=== PATIENT | male | born 1990 | race American Indian/Alaskan Native ===

== ENCOUNTER 2017-07-04 13:29 | Emergency (ER) | payer OTHER ==
[2017-07-04 13:59] VITALS: RESP 18
--- NOTE | 2017-07-04 14:27 | C.PDOC ---
History Of Present Illness DYSURIA, PENILE DC X 1 DAY. +CONCERN FOR STD EXPOSURE 5 DAYS AGO. NO LESIONS, NO OTHER ASSOC SX EXAM NEG Time Seen by Provider: 07/04/17 14:00 Chief Complaint (Nursing): Male Genitourinary History Per: Patient History/Exam Limitations: no limitations Onset/Duration Of Symptoms: Days (1) Current Symptoms Are (Timing): Still Present Past Medical History Reviewed: Historical Data, Nursing Documentation, Vital Signs Vital Signs: Last Vital Signs Temp 98.4 F 07/04/17 13:56 Pulse 85 07/04/17 13:56 Resp 18 07/04/17 13:56 BP 119/80 07/04/17 13:56 Pulse Ox 100 07/04/17 14:48 Family History: States: No Known Family Hx - Social History Hx Alcohol Use: Yes Hx Substance Use: No - Immunization History Hx Tetanus Toxoid Vaccination: No Hx Influenza Vaccination: No Hx Pneumococcal Vaccination: No Review Of Systems Except As Marked, All Systems Reviewed And Found Negative. Constitutional: Negative for: Fever Gastrointestinal: Negative for: Nausea, Vomiting, Abdominal Pain Genitourinary: Positive for: Dysuria, Penile Discharge Physical Exam - Physical Exam Appears: Well, Non-toxic, No Acute Distress Skin: Warm, Dry Head: Atraumatic, Normacephalic Eye(s): bilateral: Normal Inspection, PERRL, EOMI Oral Mucosa: Moist Neck: Normal, Normal ROM, Supple Respiratory: Normal Breath Sounds Gastrointestinal/Abdominal: Normal Exam, Soft, No Tenderness, No Guarding, No Rebound Back: Normal Inspection, No CVA Tenderness Extremity: Normal ROM, No Swelling Neurological/Psych: Oriented x3, Normal Speech, Normal Motor ED Course And Treatment O2 Sat by Pulse Oximetry: 100 (RA) Pulse Ox Interpretation: Normal Medical Decision Making Medical Decision Making: PLAN: * Chlamydia/GC * Urinalysis * Cipro PO * Pyridium PO * Zithromax PO * Rocephin IM Disposition Counseled Patient/Family Regarding: Studies Performed, Diagnosis, Need For Followup, Rx Given - Disposition Referrals: [facility] [Outside] [facility] [Outside] Disposition: HOME/ ROUTINE Disposition Time: 14:48 Condition: IMPROVED Prescriptions: Ciprofloxacin [Cipro] 1 tab PO BID #14 tab Phenazopyridine HCl [Pyridium] 200 mg PO BID #6 tablet Instructions: Sexually Transmitted Diseases (ED), Urinary Tract Infection in Men (ED) Forms: [employer] (Serbian) - Clinical Impression Clinical Impression: UTI (urinary tract infection), Concern about STD in male without diagnosis - Scribe Statement The provider has reviewed the documentation as recorded by the Chrisibe Arabella Larios Provider Attestation: All medical record entries made by the Chrisibe were at my direction and personally dictated by me. I have reviewed the chart and agree that the record accurately reflects my personal performance of the history, physical exam, medical decision making, and the department course for this patient. I have also personally directed, reviewed, and agree with the discharge instructions and disposition.
[2017-07-04 14:40] LABS: RBC URINE 2 /hpf (0-3); URINE BACTERIA OCC (<OCC); URINE BILIRUBIN NEGATIVE (NEGATIVE); URINE BLOOD NEGATIVE (NEGATIVE); URINE COLOR Yellow (YELLOW); URINE GLUCOSE (UA) NORMAL (Normal); URINE KETONE NEGATIVE (NEGATIVE); URINE LEUKOCYTE ESTERASE 1+ Leu/uL (Negative); URINE PROTEIN NEGATIVE (NEGATIVE); URINE UROBILINOGEN NORMAL mg/dL (0.2-1.0); WBC URINE 20 /hpf (0-5)
[2017-07-04] MEDS ORDERED: cefTRIAXone (Rocephin) 250 mg Inj IM STA (14:45)
[2017-07-04 15:41] VITALS: BP 119/69; PULSE 75; TEMP 98.3; O2SAT 98
== END 2017-07-04 15:42 | disposition home or self-care (01) ==
LOC: C.ER 13:29
DX: N39.0 Urinary tract infection, site not specified (principal); Z20.2 Contact with and (suspected) exposure to infections with a predominantly sexual mode of transmission
CPT/HCPCS: 81001; 87086; 87491; 87591; 96372; 99284; J0696